=== PATIENT | female | born 1955 | race Hispanic/Latino ===

== ENCOUNTER 2021-04-19 10:45 | Emergency (ER) | payer BC ==
--- OUTSIDE RECORDS SUMMARY | 2021-04-19 10:47 | XMS REPORT | Continuity of Care Document ---
:1955 Author Organization [facility] t Address [address] [place] [address] Care Team Providers Name Role Phone Marcel Felder MD Primary Care Physician Marcel Felder MD Attending Clinician Ihsan DEL ROSARIO A Attending Clinician Green JIGMAKER Attending Clinician Lab, Fam Pob I Attending Clinician Unavailable Aleyda JIGMAKER Attending Clinician Provider, Urgent Care Attending Clinician Unavailable Pob, Lab Main Attending Clinician Unavailable Doctor Unassigned, Name Attending Clinician Unavailable UNDEFINED Admitting Clinician Unavailable Payers Payer Name Policy Type Policy Number Effective Date Expiration Date S ource Problems Condition Condition Condition Status Onset Resolution Last Treating Co mments Source Name Details Category Date Date Treatment Clinician Date Elevated Elevated Disease Active Unive rs liver liver 7- ity of enzymes enzymes 00:00: [address] Allergic Allergic Disease Active 2014-04 Unive rs rhinitis rhinitis 2- ity of 00:00: [address] Hyperlipid Hyperlipid Disease Active 2014-04 U nivers emia emia 2- ity of 00:00: [address] Essential Essential Disease Active 2014-04 Uni vers hypertensi hypertensi 2-03 it y of on on 00:00: [place] 00 Medical Branch Type 2 Type 2 Disease Active 2014-04 [facility] diabetes diabetes 2- ity of mellitus mellitus 00:00: [place] [address] Medical Branch Allergies, Adverse Reactions, Alerts Allergy Allergy Status Severity Reaction(s) Onset Inactive Treating Comm ents Source Name Type Date Date Clinician karlie DA Active [facility]- [place] [facility] ciproflo DA Active [facility] xacin 2- [place] [facility]: [facility] Sulfamet Propensi Active Hives 2015-04 Univer s hoprim ty to 04-13 ity of Ds adverse 00:00: [place] reaction Medical s Branch Social History Social Habit Start Date Stop Date Quantity Comments Source Exposure to Not sure [facility]-CoV-2 [facility] (event) Branch Alcohol intake 2020-05-22 2020-05-22 Current [facility] 00:00:00 00:00:00 non-drinker of [facility] alcohol [place] (finding) Tobacco use and 2015-03-05 2015-03-05 Never used Universit y of exposure 00:00:00 00:00:00 [facility] Sex Ass[birth year] Universit y of 00:00:00 00:00:00 [facility] Smoking Status Start Date Stop Date Source Never smoker [facility] Medications Ordered Filled Start Stop Current Ordering Indication Dosage Frequency Signature Comments Components Source Medication Medication Date Date Medication? Clinician (SIG) Name Name cefUROXime 2020-04 Yes [id number] 250mg Take 1 Univers 250 mg 2-23 tablet by ity of tablet 00:00: mouth 2 [place] (two) Medical times Branch daily. METFORMIN Yes [id number] 1000mg TAKE 1 Univers 1,000 mg 9-08 TABLET BY ity of tablet 00:00: MOUTH 2 [place] (TWO) Medical TIMES Branch DAILY WITH MEALS. FOLLOW-UP FOR REFILLS/LA BS cefUROXime 2020- No [id number] 250mg Take 1 Univers 250 mg 7- 12- tablet by ity of tablet 00:00: 00:00 mouth 2 [place] 00 :00 (two) Medical times Branch daily. naproxen 2021-0 Yes 550mg Take 550 Univ ers sodium 550 2-09 mg by ity of mg tablet 00:00: mouth 2 00 (two) [facility] daily as needed. SITagliptin 2019- Yes [id number] 50mg Take 1 Univers (JANUVIA) 8-06 tablet by ity o f 50 mg 00:00: mouth [place] tablet 00 daily. Medical Branch lovastatin 2019- Yes [id number] 20mg Take 1 Univers 20 mg 8-06 tablet by ity of tablet 00:00: mouth at [place] 00 bedtime. Medical Branch irbesartan 2019- Yes [id number] 150mg Take 1 Univers 150 mg 8-06 tablet by ity of tablet 00:00: mouth [place] 00 daily. [facility] Immunizations Ordered Filled Immunization Date Status Comments Sourc e Immunization Name Name SARS-COV-2 COVID-19 2020-05-28 Completed Unive rsity of PFIZER VACCINE 00:00:00 [facility] SARS-COV-2 COVID-19 2020-04-30 Completed Unive rsity of PFIZER VACCINE 00:00:00 [facility] Influenza High Dose 2020-04-09 Completed Unive rsity of 00:00:00 [facility] Influenza High Dose 2019-01-12 Completed Unive rsity of 00:00:00 [facility] Vital Signs Vital Name Observation Time Observation Value Comments Source Systolic blood 2021-03-25 15:35:00 149 mm[Hg] Univer sity of pressure [facility] Diastolic blood 2021-03-25 15:35:00 75 mm[Hg] Unive rsity of pressure [facility] Heart rate 2021-03-25 15:34:00 76 /min [facility] Body temperature 2021-03-25 15:34:00 36.83 [facility] height 2021-03-25 15:34:00 162.6 cm [facility] Body weight 2021-03-25 15:34:00 60.782 kg [facility] BMI 2021-03-25 15:34:00 23.00 kg/m2 [facility] Procedures Procedure Date / Time Performed Performing Clinician Sourc e POCT URINALYSIS 2021-03-25 00:00:00 [facility] Encounters Start End Encounter Admission Attending Care Care Encounter Source Date/Time Date/Time Type Type Clinicians Facility Department ID 2020-05-12 Inpatient [facility] [id number] [facility] 08:50:00 [id number] [facility] 2021-03-25 2021-03-25 Office [facility] [place] [facility] [id number] 09:00:00 09:54:52 Visit [facility] [id number] it y of [facility] [id number] Felipe as FAHAD?BLEA [phone] Ny christaridge [address] OFFICE BUILDING 2019-12-16 2019-12-16 Refill [facility] [place] [facility] [id number] 00:00:00 00:00:[address] [facility] [id number] [facility] 4.2.7.2.686 Professio [phone] [place] [address] Office Building One 2019-12-04 2019-12-04 Telephone [facility] [place] [facility] [id number] 00:00:00 00:00:[address] [facility] [id number] [facility] [id number] Professio [phone] [place] [address] Office [facility] One 2019-11-27 2019-11-27 [facility] 1.2.840.114 [id number] 00:00:00 00:00:00 Bertrand [place] [id number] [facility] 4.2.7.2.686 [id number] [id number] 2019-11-22 2019-11-22 [facility] 1.2.840.114 [id number] 00:00:00 00:00:[address] [facility] [id number] Edward [place] [id number] Professio [phone] [place] [address] Office Building One 2019-11-19 2019-11-19 [facility] 1.2.840.114 [id number] 00:00:00 00:00:00 [facility] [id number] [facility] 4.2.7.2.686 Professio [phone] [address] 2019-11-07 2019-11-07 Telemedici Francavibhasathish [facility] 1.2.840.114 [id number] 08:18:19 08:33:19 ne Visit Bertrand Long [id number] Marcel [place] 4.2.7.2.686 Professio [phone] [address] 2019-11-01 2019-11-01 Refill Ihsan, [facility] 1.2.840.114 [id number] 00:00:00 00:00:00 [facility] 350.1.13.10 [place] [id number] Professio [phone] [place] [address] Office [facility] 2019-10-31 2019-10-31 Telephone Ihsan, [facility] [id number] 00:00:00 00:00:00 [facility] 350.1.13.10 [place] [id number] Professio [phone] [place] [address] Office [facility] 2019-10-24 2019-10-24 Telephone Charbel [facility] [id number] 00:00:00 00:00:00 [facility] 350.1.13.10 [place] 4.2.7.2.686 Professio [phone] [place] [address] Office [facility] 2019-10-23 2019-10-23 Laboratory Lab, [facility] 1.2.840.114 [id number] 07:10:30 07:30:30 Only Fam Pob I Health 350.1.13.10 [place] [id number] Professio [phone] [place] [address] Office [facility] 2019-10-22 2019-10-22 Refill Ihsan, [facility] 1.2.840.114 [id number] 00:00:00 00:00:00 [facility] 350.1.13.10 [place] 4.2.7.2.686 Professio [phone] [place] [address] Office [facility] 2019-10-11 2019-10-11 Telephone AUBRIE Maynard [id number] 00:00:00 00:00:00 Sabina LYNCH 350.1.13.10 HOSPITAL 4.2.7.2.686 [id number] 2019-10-10 2019-10-10 Laboratory Lab, [facility] 1.2.840.114 [id number] 10:24:38 10:44:38 Only Fam Pob I Health 350.1.13.10 [place] 4.2.7.2.686 Professio [phone] [place] [address] Office Building One 2019-10-07 2019-10-07 Patient Ihsan, [facility] 1.2.840.114 [id number] 00:00:00 00:00:00 Secure Msg Trinh A [place] 350.1.13.10 [place] 4.2.7.2.686 Professio [phone] [address] 2019-10-04 2019-10-04 Urgent Provider, [facility] [id number] 13:26:21 17:20:52 Care [facility] 350.1.13.10 Care [place] 4.2.7.2.686 Professio [phone] [place] [address] Office Building [facility] 2019-10-04 2019-10-04 Brand Leader Sami, [facility] 1.2.840.114 [id number] 14:42:28 14:57:28 Visit Lab Main [place] 350.1.13.10 [place] 4.2.7.2.686 Professio [phone] [address] 2019-07-13 2019-07-13 Refill Ihsan, [facility] 1.2.840.114 [id number] 00:00:00 00:00:00 Trinh [facility] 350.1.13.10 [place] 4.2.7.2.686 Professio [phone] [place] [address] Office Building One 2019-07-07 2019-07-07 Refill Ihsan, [facility] 1.2.840.114 [id number] 00:00:00 00:00:00 Trinh [facility] 350.1.13.10 [place] 4.2.7.2.686 Professio [phone] [place] [address] Office Building One 2019-06-28 2019-06-28 Refill Ihsan, [facility] 1.2.840.114 [id number] 00:00:00 00:00:00 [facility] 350.1.13.10 [place] 4.2.7.2.686 Professio [phone] [place] [address] Office Building One 2019-06-26 2019-06-26 Refill Ihsan, [facility] 1.2.840.114 [id number] 00:00:00 00:00:00 [facility] 350.1.13.10 [place] 4.2.7.2.686 Professio [phone] [place] [address] Office Building One 2019-05-25 2019-05-25 Refill Ihsan, [facility] 1.2.840.114 [id number] 00:00:00 00:00:00 [facility] 350.1.13.10 [place] 4.2.7.2.686 Professio [phone] [place] [address] Office Building One 2019-05-24 2019-05-24 Refill Ihsan, [facility] 1.2.840.114 [id number] 00:00:00 00:00:00 [facility] 350.1.13.10 [place] 4.2.7.2.686 Professio [phone] [place] [address] Office Building One 2019-04-21 2019-04-21 Refill Ihsan, [facility] 1.2.840.114 [id number] 00:00:00 00:00:00 [facility] 350.1.13.10 [place] 4.2.7.2.686 Professio [phone] [place] [address] Office Building One 2019-04-17 2019-04-17 Refill Ihsan, [facility] 1.2.840.114 [id number] 00:00:00 00:00:00 [facility] 350.1.13.10 [place] 4.2.7.2.686 Professio [phone] [place] [address] Office Building One 2018-12-10 2018-12-10 Orders Doctor AUBRIE 1.2.840.114 [id number] 00:00:00 00:00:00 Only Unassigned, [facility] 350.1.13.10 [place] [facility] 4.2.7.2.686 [id number] [id number] Results Test Description Test Time Test Comments Results Result Comments Source POCT URINALYSIS W SPECIFIC GRAVITY 2021-03-25 15:56:00 Test Item Value Reference Range Interpretation Comme nts POCT U SP GRAV (test code = 3255) 1.015 mg/dl 1.005-1.025 POCT PH U (test code = 3254) 6 mg/dl 5-8 POCT U LEUK EST (test code = 3263) ++ Negative - Negative POCT U NIT (test code = 3262) neg Negative - Negative POCT U PROT (test code = 3259) trace Negative - Negative POCT U GLU (test code = 3256) normal Negative - Negative POCT U KETONE (test code = 3258) neg Negative - Negative POCT U UROBILI (test code = 3260) normal 0.2-1 POCT U BILI (test code = 3261) neg Negative - Negative POCT U BLD (test code = 3257) trace Negative - Negative POCT U COLOR (test code = 3266) dark POCT U APPEAR (test code = 3267) clear [facility]- XR L-SPINE 2/3 [id number] 10:11:00 [facility] 1955 Sex: F Name: JAK MUHAMMAD [facility] : 1955 Age/S: 65 / F [address] [address] [place] Unit #: [id number] Loc: [place] [address] Phys: [id number] Dis Date: Status: REG ER PHONE #:[phone] Exam Date: 05/12/2020 1007 FAX #: Reason: trauma EXAMS: CPT: [id number] XR L-SPINE 2/3 VIEWS 96395 Fluoro Time: DAP (Gy m2): Air Kerma (mGy): EXAM: - XR L-SPINE 2/3 VIEWS HISTORY: trauma S17 COMPARISON: None available time of interpretation. FINDINGS: AP, lateral, and spot lateral views of the lumbar spine are provided. There is no acute fracture or malalignment. Vertebral body heights and sagittal alignment are maintained. Posterior elements are aligned and intact. No locked or perched facet. Scattered areas of degenerative disc disease and facet arthropathy is present at multiple levels. The paravertebral soft tissues are unremarkable. The visualized SI joints are unremarkable. IMPRESSION: No evidence of acute fracture or malalignment of the lumbar spine at 1011 Reported and signed by: Rosenda Mcgee M.D. CC: Edgar Ramachandran MD PAGE 1 Signed Report Name: JAK MUHAMMAD [facility] : 1955 Age/S: 65 / F [id number] [address] [place] Unit #: [id number] Loc: [place] [address] Phys: Edgar Ramachandran MD Acct: [id number] Dis Date: Status: REG ER PHONE #: [phone] Exam Date: 05/12/2020 1007 FAX #: Reason: trauma EXAMS: CPT: [id number] XR L-SPINE 2/3 VIEWS 86847 Fluoro Time: DAP (Gy m2): Air Kerma (mGy): <Continued> Technologist: Gabi Mirza RT(R)(CT) Trnscb Date/Time: 05/12/2020 (1011) [id number] Orig Print D/T: S: 05/12/2020 (1014) PAGE 2 Signed Report
--- NOTE | 2021-04-19 13:36 | RAD REPORT ---
EXAM DESCRIPTION: RAD - Shoulder Left 2 View - 04/19/2021 1:29 pm CLINICAL HISTORY: PAIN COMPARISON: Chest Single View dated 04/19/2021; Ribs Left dated 04/19/2021 TECHNIQUE: AP and transthoracic views of the left shoulder obtained. FINDINGS: Proximal left humerus fracture is present without dislocation of the humeral head. Fractur e involves the greater tuberosity laterally with the fracture line tracking medially and inferiorly. Medial margin of the fracture is approximately 15 mm below the surgical neck. No pathologic bone changes are seen. Sternoclavicular joint is intact. No abnormal soft tissue calcif ications. There is minimal angulation of the distal fracture fragment. No measurable distraction or displacemen t. IMPRESSION: Proximal left humerus fracture as detailed.
--- NOTE | 2021-04-19 13:38 | RAD REPORT ---
EXAM DESCRIPTION: RAD - Chest Single View - 04/19/2021 1:29 pm CLINICAL HISTORY: RIB PAIN - LEFT, fall, trauma history COMPARISON: No remote imaging TECHNIQUE: AP portable chest image was obtained 04/19/2021 1:29 pm . FINDINGS: Lungs appear fibrotic but no pulmonary contusion or acute lung parenchymal process seen. H eart and vasculature are normal. No measurable pleural effusion and no pneumothorax. No acute rib cag e abnormality though detail is limited. Concerns for rib fracture can be addressed with dedicated obed ging. Proximal left humerus fracture is separately detailed. No acute aortic findings suspected. IMPRESSION: Fibrotic lung findings with no pulmonary contusion or pneumothorax. Concerns for rib fracture can be addressed with dedicated imaging.
--- NOTE | 2021-04-19 13:40 | RAD REPORT ---
EXAM DESCRIPTION: RAD - Knee Right 3 View - 04/19/2021 1:29 pm CLINICAL HISTORY: PAIN COMPARISON: No comparisons FINDINGS: No fracture, dislocation or periosteal reaction.No joint effusion seen. Minimal spurring i s seen at the quadriceps attachment to the patella. No joint space narrowing. No foreign body or othe r soft tissue abnormality. IMPRESSION: Negative right knee for acute bone or joint finding. Clinical concerns for internal derangement or occult bony injury could be further assessed with MR im aging.
--- NOTE | 2021-04-19 13:41 | RAD REPORT ---
EXAM DESCRIPTION: RAD - Ribs Left - 04/19/2021 1:29 pm CLINICAL HISTORY: Fall, left shoulder and left ribcage pain COMPARISON: Single-view chest same date, left shoulder same date FINDINGS: No displaced rib fracture is seen and no non-displaced rib fractures confirmed. Patient quintero s prominent costochondral calcifications. No aggressive rib lesion. No underlying pneumothorax, effus ion, infiltrate or pulmonary contusion. Proximal left humerus fracture is detailed in separate imaging. IMPRESSION: No displaced rib fracture present and no nondisplaced rib fracture confirmed.
[2021-04-19] MEDS ORDERED: HYDROCODONE/APAP 10/325 TAB ONE (14:27)
--- NOTE | 2021-04-19 15:06 | RAD REPORT ---
EXAM DESCRIPTION: CT - Head Brain Wo Cont - 04/19/2021 2:57 pm CLINICAL HISTORY: PAIN COMPARISON: No comparisonsNo comparisons TECHNIQUE: Axial 5 mm thick images of the head were obtained without IV contrast. All CT scans are performed using dose optimization technique as appropriate and may include automated exposure control or mA/KV adjustment according to patient size. FINDINGS: No intracranial hemorrhage, mass, edema or shift of mid-line structures. No acute infarcti on changes seen. No abnormal extra-axial fluid collections. Ventricles are normal. Patient very minim al cerebral white matter chronic ischemic change. No measurable atrophy Mastoid air cells are clear. Mucosal thickening and air-fluid level present in the right maxillary si nus with no additional finding that would indicate a trauma etiology. No globe or orbital content abn ormality. No acute bony findings. IMPRESSION: No acute intracranial finding identifiable. Air-fluid level in the right maxillary sinus probably from sinusitis. No additional findings that wou ld indicate trauma etiology.
--- NOTE | 2021-04-19 15:11 | ER ---
Nurse's Notes [facility] Name: Nora Barrett Age: 66 yrs Sex: Female : 1955 Arrival Date: 04/19/2021 Time: 10:46 Bed 30 Private MD: Diagnosis: Fall on same level from slipping, tripping and stumbling without subsequent striking against object;Fracture of upper end of humerus;Abrasion, right knee;Contusion of left front wall of thorax Presentation: 04/19 12:22 Chief complaint: Patient states: Pt was walking out of [facility] and tripped and fell onto vg1 left side. States Left shoulder pain, Left side of ribs and Right knee. States hit head with LOC. Coronavirus screen: Vaccine status: Patient reports receiving the 2nd dose of the covid vaccine. Client denies travel out of the [place] in the last 14 days. Ebola Screen: Patient negative for fever greater than or equal to 101.5 degrees Fahrenheit, and additional compatible Ebola Virus Disease symptoms. Initial Sepsis Screen: Does the patient meet any 2 criteria? No. Patient's initial sepsis screen is negative. Does the patient have a suspected source of infection? No. Patient's initial sepsis screen is negative. Risk Assessment: Do you want to hurt yourself or someone else? Patient reports no desire to harm self or others. Onset of symptoms was April 19, 2021. 12:22 Method Of Arrival: Ambulatory vg1 12:22 Acuity: ROSANNE 3 vg1 Triage Assessment: 12:25 General: Appears in no apparent distress. uncomfortable, Behavior is calm, cooperative. vg1 Pain: Complains of pain in Left shoulder, left side of ribs, and Right knee. Musculoskeletal: Circulation, motion, and sensation intact. Historical: - Allergies: 12:25 Cipro; vg1 12:25 Sulfa (Sulfonamide Antibiotics); vg1 - Home Meds: 12:25 losartan oral [Active]; Metformin Oral [Active]; Lovastatin Oral [Active]; Bactrim DS vg1 Oral [Active]; - PMHx: 12:25 Hypertensive disorder; Diabetes mellitus; vg1 - PSHx: 12:25 None; vg1 - Immunization history:: Client reports receiving the 2nd dose of the Covid vaccine. - Social history:: Smoking status: Patient denies any tobacco usage or history of. Screenin:29 Abuse screen: Denies threats or abuse. Denies injuries from another. Nutritional jh5 screening: No deficits noted. Tuberculosis screening: No symptoms or risk factors identified. Fall Risk None identified. Assessment: 14:29 General: Appears in no apparent distress. well groomed, well developed, well nourished, 5 Behavior is calm, cooperative, appropriate for age. Neuro: No deficits noted. Cardiovascular: No deficits noted. Respiratory: No deficits noted. Vital Signs: 12:22 BP 165 / 83; Pulse 88; Resp 16; Temp 98.0; Pulse Ox 100% ; Weight 62.6 kg; Height 5 ft. vg1 4 in. (162.56 cm); Pain 10/10; 12:22 Body Mass Index 23.69 (62.60 kg, 162.56 cm) vg1 ED Course: 10:46 Patient arrived in ED. am2 12:25 Triage completed. vg1 12:25 Arm band placed on. vg1 13:29 Knee Right 3 View XRAY In Process Unspecified. EDMS 13:29 Shoulder Left (2 View) XRAY In Process Unspecified. EDMS 13:30 Ribs Left XRAY In Process Unspecified. EDMS 13:30 Chest Single View XRAY In Process Unspecified. EDMS 14:20 Mike Granado NP is PHCP. pm1 14:20 Amish Helton MD is Attending Physician. pm1 14:24 Becca Nugent RN is Primary Nurse. jh5 14:29 Patient has correct armband on for positive identification. Call light in reach. Side 5 rails up X 1. 14:29 No provider procedures requiring assistance completed. Patient did not have IV access [facility] during this emergency room visit. 14:56 CT Head Brain wo Cont In Process Unspecified. EDMS 15:19 Jean Carlos Dennis MD is Referral Physician. pm1 Administered Medications: 14:28 Drug: Ona (HYDROcodone-acetaminophen) 10 mg-325 mg 1 tabs Route: PO; jh5 Outcome: 15:10 Discharge ordered by . pm1 15:41 Patient left the ED. ll1 Signatures: Dispatcher [employer] EDMS Mike Granado NP IMPORT AND EXPORT CLERK pm1 Arlet Youssef am2 Lisset Fritz RN RN vg1 Jameson Luciano, RN RN ll1 Becca Nugent, RN RN jh5
--- NOTE | 2021-04-19 15:11 | EDPHYS ---
Physician Documentation [facility] Name: Nora Barrett Age: 66 yrs Sex: Female : 1955 Arrival Date: 04/19/2021 Time: 10:46 Bed 30 Private MD: ED Physician Amish Helton HPI: 04/19 14:23 This 66 yrs old Female presents to ER via Ambulatory with complaints of Left pm1 Arm Injury. 14:23 The patient or guardian complains of pain, that is acute. The complaints affect the pm1 left upper arm. Context: The problem was sustained outdoors, resulted from Tripped and fell forward onto her left side. Presenting with pain and abrasion to right knee, left upper arm pain, and left rib pain. Patient reports she also hit her face, knocking off her glasses. She reports LOC. Onset: The symptoms/episode began/occurred just prior to arrival. Treatment prior to arrival includes: sling, by EMS. Modifying factors: The symptoms are alleviated by remaining still. Associated signs and symptoms: Pertinent positives:. Severity of symptoms: in the emergency department the symptoms are unchanged. The patient has not experienced similar symptoms in the past. The patient has not recently seen a physician. Historical: - Allergies: 12:25 Cipro; vg1 12:25 Sulfa (Sulfonamide Antibiotics); vg1 - Home Meds: 12:25 losartan oral [Active]; Metformin Oral [Active]; Lovastatin Oral [Active]; Bactrim DS vg1 Oral [Active]; - PMHx: 12:25 Hypertensive disorder; Diabetes mellitus; vg1 - PSHx: 12:25 None; vg1 - Immunization history:: Client reports receiving the 2nd dose of the Covid vaccine. - Social history:: Smoking status: Patient denies any tobacco usage or history of. ROS: 14:23 Constitutional: Negative for fever, chills, and weight loss, Eyes: Negative for injury, pm1 pain, redness, and discharge, Neck: Negative for injury, pain, and swelling, Cardiovascular: Negative for chest pain, palpitations, and edema, Respiratory: Negative for shortness of breath, cough, wheezing, and pleuritic chest pain, Abdomen/GI: Negative for abdominal pain, nausea, vomiting, diarrhea, and constipation, Back: Negative for injury and pain. 14:23 MS/extremity: Positive for pain, of the right knee and left upper arm. 14:23 Skin: Positive for abrasion(s), of the right knee. 14:23 Neuro: Positive for headache, loss of consciousness, Negative for dizziness, syncope, tingling, weakness. 14:23 All other systems are negative. Exam: 14:23 Constitutional: This is a well developed, well nourished patient who is awake, alert, pm1 and in no acute distress. Head/Face: Normocephalic, atraumatic. 14:23 Eyes: Exam is negative for acute changes, Periorbital structures: appear normal, Extraocular movements: no acute changes, Sclera: no acute changes, icterus, is not appreciated. 14:23 ENT: Exam is negative for acute changes, External ear(s): are unremarkable, Ear canal(s): are normal, TM's: are normal. 14:23 Cardiovascular: Exam negative for acute changes, Rate: normal, Rhythm: regular, Pulses: no pulse deficits are appreciated. 14:23 Respiratory: Exam negative for acute changes, respiratory distress, shortness of breath. 14:23 Musculoskeletal/extremity: Exam is negative for acute changes, Extremities: grossly normal except: noted in the left upper arm: tenderness, Pulses: noted to be 2+ in the left radial artery, the left hand Sensation intact. 14:23 Skin: Appearance: normal except for affected area, injury, abrasion(s), small abrasion noted, of the right knee. 14:23 Neuro: Exam negative for acute changes, Orientation: is normal, Mentation: is normal, Motor: is normal, moves all fours. Vital Signs: 12:22 BP 165 / 83; Pulse 88; Resp 16; Temp 98.0; Pulse Ox 100% ; Weight 62.6 kg; Height 5 ft. vg1 4 in. (162.56 cm); Pain 10/10; 12:22 Body Mass Index 23.69 (62.60 kg, 162.56 cm) vg1 MDM: 14:20 Data reviewed: vital signs. Data interpreted: Pulse oximetry: on room air is 100 %. pm1 Interpretation: normal. 14:22 Patient medically screened. pm1 15:08 Counseling: I had a detailed discussion with the patient and/or guardian regarding: the pm1 historical points, exam findings, and any diagnostic results supporting the discharge/admit diagnosis, radiology results, the need for outpatient follow up, a orthopedic surgeon, to return to the emergency department if symptoms worsen or persist or if there are any questions or concerns that arise at home. 04/19 12:30 Order name: Knee Right 3 View XRAY; Complete Time: 13:50 vg1 04/19 12:30 Order name: Shoulder Left (2 View) XRAY; Complete Time: 13:50 vg1 04/19 12:30 Order name: Ribs Left XRAY; Complete Time: 13:50 vg1 04/19 12:30 Order name: Chest Single View XRAY; Complete Time: 13:50 vg1 04/19 14:22 Order name: CT Head Brain wo Cont; Complete Time: 15:08 pm1 04/19 14:22 Order name: Shoulder Immobilizer; Complete Time: 14:30 pm1 Administered Medications: 14:28 Drug: [place] (HYDROcodone-acetaminophen) 10 mg-325 mg 1 tabs Route: PO; jh5 Disposition: 04/20 07:46 Co-signature as Attending Physician, Amish Helton MD I agree with the assessment and randall plan of care. Disposition Summary: 04/19/21 15:10 Discharge Ordered Location: Home pm1 Problem: new pm1 Symptoms: have improved pm1 Condition: Stable pm1 Diagnosis - Fall on same level from slipping, tripping and stumbling without subsequent pm1 striking against object - Fracture of upper end of humerus pm1 - Abrasion, right knee pm1 - Contusion of left front wall of thorax pm1 Followup: pm1 - With: Emergency Department - When: As needed - Reason: Worsening of condition Followup: pm1 - With: Private Physician - When: 2 - 3 days - Reason: Recheck today's complaints, Continuance of care, Re-evaluation by your physician Followup: pm1 - With: Jean Carlos Dennis MD - When: 2 - 3 days - Reason: Recheck today's complaints, Continuance of care, Re-evaluation by your physician Discharge Instructions: - Discharge Summary Sheet pm1 - Abrasion pm1 - Rib Contusion pm1 - Humerus Fracture Treated With Immobilization pm1 - How to Use a Shoulder Immobilizer pm1 Forms: - Medication Reconciliation Form pm1 - Thank You Letter pm1 - Antibiotic Education pm1 - Prescription Opioid Use pm1 - Work release form pm1 Prescriptions: - Tylenol-Codeine #3 300 mg-30 mg Oral - take 2 tablet by ORAL route every 6 hours As needed; 20 tablet; Refills: 0, pm1 Product Selection Permitted Signatures: Dispatcher [employer] Amish Clark MD MD cha Marinas, Patrick, NP WEBSITE DESIGNER pm1 Lisset Fritz, RN RN vg1 Becca Nugent RN RN jh5
[2021-04-19 15:47] VITALS: BP 165/83; TEMP 98; O2SAT 100
== END 2021-04-19 15:41 | disposition home or self-care (01) ==
LOC: ER 10:45
DX: S27.329A Contusion of lung, unspecified, initial encounter (principal); S42.202A Unspecified fracture of upper end of left humerus, initial encounter for closed fracture; S80.211A Abrasion, right knee, initial encounter; S20.212A Contusion of left front wall of thorax, initial encounter; W01.0XXA Fall on same level from slipping, tripping and stumbling without subsequent striking against object, initial encounter; I10 Essential (primary) hypertension; Z88.1 Allergy status to other antibiotic agents; Z88.2 Allergy status to sulfonamides
CPT/HCPCS: 70450; 71045; 99283